=== PATIENT | male | born 1950 ===

== ENCOUNTER 2023-10-26 09:18 | Day surgery (SDC) | payer MEDICARE, OTHER ==
[~2023-10-26] VITALS: Ht 167.6 cm; Wt 131.7 kg
[~2023-10-26 09:18] MED LIST: LR 1,000 ML IV SCH; Ondansetron 4 MG/2 ML VIAL IV PRN
[2023-10-26] MEDS ORDERED: Lidocaine PF 2% (20 MG/ML) 5 ML VIAL ONE (11:13)
[2023-10-26] MEDS ORDERED: fentaNYL 50 MCG/ML 2 ML VIAL ONE (11:14)
[2023-10-26 11:37] VITALS: BP 112/60; PULSE 66
[2023-10-26 11:52] VITALS: BP 146/68; PULSE 64
--- NOTE | 2023-10-26 14:33 | NUR ---
1135 PT ARRIVES IN BAY # 3 AWAKE AND ALERT. PT IS A SBA TO RECLINER. PT DENIES PAIN OR NAUSEA AND DYSPHAGIA. 1140 SNACK GIVEN AND PT TOLERATES WELL. 1156 WENT OVER DC INSTRUCTIONS WITH PT AND FAMILY. 1200 DR IN TO SEE PT. 1210 PT DRESSES SELF
[2023-10-26 14:44] VITALS: BP 143/72; PULSE 64; TEMP 98.1
[2023-10-26] MEDS ORDERED: VANCOCIN H125 MG/CAP PO (14:48)
[2023-10-26] MEDS ORDERED: BYSTOLIC10 MG PO (14:49)
[2023-10-26] MEDS ORDERED: NOVOLOG FLEX100 U/ML SQ (14:49)
[2023-10-26] MEDS ORDERED: HYGROTON 2525 MG/TAB (14:50)
[2023-10-26] MEDS ORDERED: TRESIBA FL200 UNIT/1 SQ (14:50)
[2023-10-26] MEDS ORDERED: PRINIVIL40 MG PO (14:51)
[2023-10-26] MEDS ORDERED: ULTRAM 50MG TAB50 MG PO (14:53)
[2023-10-26] MEDS ORDERED: NORVASC 10MG10 MG PO (14:54)
[2023-10-26] MEDS ORDERED: FLOMAX 0.40.4 MG/CAP PO (14:54)
[2023-10-26] MEDS ORDERED: TRULICITY0.75 MG/0. SQ (14:55)
[2023-10-26] MEDS ORDERED: NEURONTIN300 MG/CAP PO (14:55)
[2023-10-26] MEDS ORDERED: LASIX 40MG TABL40 MG PO (14:56)
[2023-10-26] MEDS ORDERED: BENADRYL25 M2 PO (14:57)
[2023-10-26] MEDS ORDERED: 00186-0372-20 IH (14:57)
[2023-10-26] MEDS ORDERED: RT SPIRIVA18 MCG IH (14:59)
== END 2023-10-26 12:15 | disposition home or self-care (01) ==
LOC: SDCO 09:18
DX: K74.60 Unspecified cirrhosis of liver (principal); I85.10 Secondary esophageal varices without bleeding; R18.8 Other ascites; I10 Essential (primary) hypertension; Z79.899 Other long term (current) drug therapy; Z87.891 Personal history of nicotine dependence; Z95.2 Presence of prosthetic heart valve
CPT/HCPCS: J2704; J3010; J7120